=== PATIENT | female | born 1970 | race Caucasian/White ===

== ENCOUNTER 2023-06-02 06:34 | Day surgery (SDC) | payer BC, OTHER ==
[2023-05-26 16:28] VITALS: BMI 20.8
--- NOTE | 2023-06-01 11:01 | P.HPOR ---
History of Present Illness H&P Date: 06/01/23 Subjective: This is a 53 year old female that presents today for initial evaluation regarding a several year history of progressively worsening right hand paresthesias in the thumb, index, middle and ring fingers. The patient has tried bracing at night time with little relief. They deny any inciting event or neck pain. Physical Examination: RUE: AIN/PIN/Radial/Ulnar/Median motor intact. Radial/Ulnar/Median SILT. 2+/4 Radial/Ulnar pulses palpated. 5/5 APB, 5/5 FDI. Negative Finkelsteins, negative CMC grind, positive Durkan's compression. EMG/NCV: EMG/NCV performed on 04/01/23 demonstrates mild bilateral carpal tunnel syndrome Impression: 1.) Right carpal tunnel syndrome Plan: Diagnosis and treatment options were discussed with the patient. The patient has failed conservative treatment and would like to pursue a right endoscopic vs open carpal tunnel release. Risks and benefits of surgery including bleeding, infection, damage to surrounding tissue, need for further surgery, possible need to convert to open procedure, residual numbness were discussed and the patient wished to go forward with surgery. I anticipate 2 weeks off work, this can be extended if needed at first post op appointment. CC: Nikki Fontana NP -Burak Sun DO Orthopedic Hand/Upper Extremity Surgeon Past Medical History Past Medical History: GERD/Reflux, Hyperlipidemia Additional Past Medical History / Comment(s): Varicose veins. Raynaud's. Migraines. History of Any Multi-Drug Resistant Organisms: None Reported Past Surgical History: Orthopedic Surgery, Uterine Ablation Additional Past Surgical History / Comment(s): Septoplasty, uvulectomy, turbinates reduced, right knee meniscus repair X3, left wrist carpal tunnel surgery, left baby finger fused, thumb release, plantar fasciitis releases, fibroma removal left foot, LEEP. Past Anesthesia/Blood Transfusion Reactions: Previous Problems w/ Anesthesia, Motion Sickness Additional Past Anesthesia/Blood Transfusion Reaction / Comment(s): States "had 3 surgeries in 2019, after 3rd surgery I took longer to wake up". Smoking Status: Former smoker - Past Family History Father Family Medical History: Cancer Additional Family Medical History / Comment(s): Lung cancer. Medications and Allergies Home Medications Medication Instructions Recorded Confirmed Type Atorvastatin [Lipitor] 40 mg PO HS 05/26/23 05/26/23 History DULoxetine HCL [Cymbalta] 60 mg PO QAM 05/26/23 05/26/23 History Diclofenac Sodium 50 mg PO DAILY 05/26/23 05/26/23 History Fish Oil (Unknown Dose) 1 tab PO DAILY 05/26/23 05/26/23 History Fluticasone Nasal [place] [Flonase 1 spray EA NOSTRIL DAILY 05/26/23 05/26/23 History Nasal [place]] Hydroxychloroquine Sulfate 200 mg PO DAILY 05/26/23 05/26/23 History Lisdexamfetamine Dimesylate 30 mg PO QAM 05/26/23 05/26/23 History [Vyvanse] Multivit-Min/Folic Acid/Biotin 1 tab PO DAILY 05/26/23 05/26/23 History [Hair, Skin and Nails Softgel] Multivitamins, Thera [Multivitamin 1 tab PO DAILY 05/26/23 05/26/23 History (formulary)] NIFEdipine [NIFEdipine ER 60 mg PO DAILY PRN 05/26/23 05/26/23 History (Osmotic)] Omeprazole 20 mg PO QAM 05/26/23 05/26/23 History Rizatriptan Benzoate [Rizatriptan] 10 mg PO DIRECTED PRN 05/26/23 05/26/23 History Topiramate [Topamax] 50 mg PO QAM 05/26/23 05/26/23 History traZODone HCL 100 mg PO HS 05/26/23 05/26/23 History Allergies Allergy/AdvReac Type Severity Reaction Status Date / Time No Known Allergies Allergy Verified 05/26/23 16:02 Physical Examination Osteopathic Statement: *. No significant issues noted on an osteopathic structural exam other than those noted in the History and Physical/Consult.
[~2023-06-02 06:34] MED LIST: LIDOCAINE 1% (10MG/ML) FOR IV START INTRADERMA PRN; Pre Op ABX Message 1 EACH MISC MISCELLANE ONE
[2023-06-02] MEDS ORDERED: HYDROmorphone 0.5 MG/0.5 ML SYRINGE IVP PRN (07:00)
[2023-06-02] MEDS ORDERED: MIDAZOLAM 2 MG/2 ML VIAL IV PRN (07:00)
[2023-06-02] MEDS: LACTATED RINGERS 1,000 ML IV SCH (07:12)
[2023-06-02] MEDS: ONDANSETRON 4 MG/2 ML VIAL IVP ONE (07:19)
[2023-06-02] MEDS: DEXAMETHASONE SOD PHOSPHATE 4 MG/ML 1 ML VIAL IV ONE (07:19)
[2023-06-02] MEDS: FAMOTIDINE 20 MG/2 ML VIAL IVP ONE (07:23)
[2023-06-02 07:54] VITALS: TEMP 97.6
[2023-06-02] MEDS: LIDOCAINE 2% INJ 20 MG/ML SQ ONE ×2 (07:55→08:02)
[2023-06-02] MEDS: BUPIVACAINE (PF) 0.5% 30 ML VIAL SQ ONE ×2 (07:55→08:02)
[2023-06-02] MEDS ORDERED: PROPOFOL 10 MG/ML 20 ML VIAL IV ONE (07:57)
[2023-06-02] MEDS ORDERED: MIDAZOLAM 2 MG/2 ML VIAL ONE (07:57)
[2023-06-02] MEDS ORDERED: fentaNYL (PF) 50 MCG/ML 2 ML AMP ONE (07:57)
[2023-06-02] MEDS ORDERED: LIDOCAINE 1% INJ 10MG/ML (20 ML MDV) ONE (07:57)
--- NOTE | 2023-06-02 08:14 | P.OP ---
Date of Procedure: 06/02/23 Preoperative Diagnosis: Right carpal tunnel syndrome Postoperative Diagnosis: Right carpal tunnel syndrome Procedure(s) Performed: Right endoscopic carpal tunnel release Anesthesia: MAC Surgeon: Burak Sun Patient Sitter #1: Prem Francois Estimated Blood Loss (ml): 0 Pathology: none sent Condition: stable Disposition: PACU Description of Procedure: This is a 53 year old female who presents today for a right endoscopic carpal tunnel release after having failed conservative treatment in the past. Risks and benefits of surgery were discussed with the patient including bleeding, damage to surrounding tissue, infection, need to convert to open procedure, need for further surgery as well as risks of anesthesia including pulmonary embolism and even and the patient wished to proceed with surgical intervention. The patients was seen in the pre-operative area by myself. Consent and H&P were completed and updated. The correct extremity was marked in the pre-operative area by myself and all other questions were answered. Operative Narrative: The patient was brought to the operating room by the department of anesthesia. They remained on the portable stretcher and a rolling hand table was brought to the side of the operative extremity. Pre-operative time out was performed indicating the correct patient, procedure and laterality. All in the room agreed. The patient was then drifted off to sleep by the department of an esthesia. MAC anesthesia was utilized and a 50:50 mixture of 1% Lidocaine and 0.5% bupivacaine was injected into the subcutaneous tissues of the palmar skin, 8ccs total. A nonsterile tourniquet was then applied to the operative extremity and the right upper extremity was then prepped and draped in normal sterile fashion. The operative extremity was the exsanguinated with an esmarch bandage and the tourniquet was inflated to 250mmHg. 15 blade scalpel was utilized to make a transverse incision on the palmar skin just ulnar to the palmaris longus tendon at the level of the distal wrist creas e. Ragnell retractor was then placed radially and blunt dissection was performed to reveal the distal forearm fascia. This was lifted with fine [place] pick ups and Littler tenotomy scissors were then used to open the forearm fascia transversely and a double skin hook was then placed. Hamate finder was placed into the carpal tunnel and then sequential sized dilators were inserted followed by the synovial elevator to separate the flexor tenosynovium from the undersurface of the transverse carpal ligament and a washboard texture was felt. The MicroAire endoscopic carpal tunnel release system gun was the then inserted into the carpal tunnel hugging the deep portion of the transverse carpal ligament in line with the base of the ring finger. Transverse fibers of the ligament were directly visualized. Pressure was applied on the palm to reveal the distal extent of the transverse carpal ligament. The blade was then deployed and the distal half of the transverse carpal ligament was released. The scope was then brought distal again and remaining transverse fibers were incised with the blade. The proximal half of the transverse carpal ligament was then divided and again the scope was advanced distal and remaining transverse fibers were incised with the blade. The radial and ulnar leaflets were directly visualized and mobile consistent with complete release. Tenotomy scissors were then ut ilized to release the remaining distal forearm fascia under direct visualization taking care to preserve the palmar cutaneous branch of the median nerve. Skin closure was performed with interrupted 4-0 Monocryl suture followed by steri strips. Sterile dressing was applied consisting 4x4s, Webril, and an sophie bandage. Tourniquet was let down and the hand immediately was well perfused. The patient was then woken by the department of anesthesia and transferred to PACU in stable condition. Prem REESE was present for the case in its entirety and assisted in major portions of the case and protection of vital neurovascular structures. Burak Sun D.O. Orthopedic Hand/Upper Extremity Surgeon
[2023-06-02 09:16] VITALS: BP 128/83; PULSE 62; RESP 18
== END 2023-06-02 09:06 | disposition home or self-care (01) ==
LOC: OR 06:34
PROVIDERS: ATTEND Orthopaedic Surgery Hand Surgery
DX: G56.01 Carpal tunnel syndrome, right upper limb (principal); E78.5 Hyperlipidemia, unspecified; K21.9 Gastro-esophageal reflux disease without esophagitis; G40.909 Epilepsy, unspecified, not intractable, without status epilepticus; F32.A Depression, unspecified; I73.00 Raynaud's syndrome without gangrene; G43.909 Migraine, unspecified, not intractable, without status migrainosus; I83.90 Asymptomatic varicose veins of unspecified lower extremity; Z87.891 Personal history of nicotine dependence; Z98.890 Other specified postprocedural states; Z79.1 Long term (current) use of non-steroidal anti-inflammatories (NSAID); Z79.899 Other long term (current) drug therapy
CPT/HCPCS: 29848; J2001 ×2; J2250; J1100; J2405; J3010; J3490; J2704; J0665

== ENCOUNTER 2023-10-01 12:51 | Emergency (ER) | payer OTHER, BC ==
[2023-10-01 13:30] VITALS: RESP 16
--- NOTE | 2023-10-01 15:30 | ED ---
Skin/Abscess/FB HPI - General Chief complaint: Skin/Abscess/Foreign Body Stated complaint: Needle Stick Time Seen by Provider: 10/01/23 14:46 Source: patient, RN notes reviewed Mode of arrival: ambulatory Limitations: no limitations - History of Present Illness Initial comments: This is a 53-year-old female who presents to the emergency department for a needlestick injury. Patient works for [employer] and was using the autoclave machine. States that a dirty pair of scissors poked her in the left index finger. This did draw some blood. She irrigated this thoroughly, however her boss told her that she needed to come to the emergency department for blood work. Tetanus vaccine is up-to-date. - Related Data Home Medications Medication Instructions Recorded Confirmed Atorvastatin [Lipitor] 40 mg PO HS 05/26/23 06/02/23 DULoxetine HCL [Cymbalta] 60 mg PO QAM 05/26/23 06/02/23 Diclofenac Sodium 50 mg PO DAILY 05/26/23 06/02/23 Fish Oil (Unknown Dose) 1 tab PO DAILY 05/26/23 06/02/23 Fluticasone Nasal [place] [Flonase 1 spray EA NOSTRIL DAILY 05/26/23 06/02/23 Nasal [place]] Hydroxychloroquine Sulfate 200 mg PO DAILY 05/26/23 06/02/23 Lisdexamfetamine Dimesylate 30 mg PO QAM 05/26/23 06/02/23 [Vyvanse] Multivit-Min/Folic Acid/Biotin 1 tab PO DAILY 05/26/23 06/02/23 [Hair, Skin and Nails Softgel] Multivitamins, Thera [Multivitamin 1 tab PO DAILY 05/26/23 06/02/23 (formulary)] NIFEdipine [NIFEdipine ER 60 mg PO DAILY PRN 05/26/23 06/02/23 (Osmotic)] Omeprazole 20 mg PO QAM 05/26/23 06/02/23 Rizatriptan Benzoate [Rizatriptan] 10 mg PO DIRECTED PRN 05/26/23 06/02/23 Topiramate [Topamax] 50 mg PO QAM 05/26/23 06/02/23 traZODone HCL 100 mg PO HS 05/26/23 06/02/23 Allergies Allergy/AdvReac Type Severity Reaction Status Date / Time No Known Allergies Allergy Verified 06/02/23 07:14 Review of Systems ROS Statement: Those systems with pertinent positive or pertinent negative responses have been documented in the HPI. ROS Other: All systems not noted in ROS Statement are negative. Past Medical History Past Medical History: GERD/Reflux, Hyperlipidemia Additional Past Medical History / Comment(s): Varicose veins. Raynaud's. Migraines. History of Any Multi-Drug Resistant Organisms: None Reported Past Surgical History: Orthopedic Surgery, Uterine Ablation Additional Past Surgical History / Comment(s): Septoplasty, uvulectomy, turbinates reduced, right knee meniscus repair X3, left wrist carpal tunnel surgery, left baby finger fused, thumb release, plantar fasciitis releases, fibroma removal left foot, LEEP. Past Anesthesia/Blood Transfusion Reactions: Previous Problems w/ Anesthesia, Motion Sickness Additional Past Anesthesia/Blood Transfusion Reaction / Comment(s): States "had 3 surgeries in 2019, after 3rd surgery I took longer to wake up". Past Psychological History: Depression Smoking Status: Former smoker - Past Family History Father Family Medical History: Cancer Additional Family Medical History / Comment(s): Lung cancer. General Exam Limitations: no limitations General appearance: alert, in no apparent distress Head exam: Present: atraumatic, normocephalic, normal inspection Respiratory exam: Present: normal lung sounds bilaterally. Absent: respiratory distress, wheezes, rales, rhonchi, stridor Cardiovascular Exam: Present: regular rate, normal rhythm, normal heart sounds. Absent: systolic murmur, diastolic murmur, rubs, gallop, clicks Neurological exam: Present: alert, oriented X3, CN II-XII intact Psychiatric exam: Present: normal affect, normal mood Skin exam: Present: warm, dry, intact, normal color. Absent: rash Course Vital Signs 10/01/23 10/01/23 13:27 16:15 Temperature 98.1 F 98 F Pulse Rate 74 90 Respiratory 16 16 Rate Blood Pressure 126/80 120/82 O2 Sat by Pulse 98 98 Oximetry Medical Decision Making - Medical Decision Making This is a 53 year old female who presents to the emergency department for a needle stick injury. Was pt. sent in by a medical professional or institution? @ -No Did you speak to anyone other than the patient for history? @ -No Did you review nursing and triage notes? @ -Yes, and I agree, it is accurate with regards to the patient's symptoms. Were old charts reviewed? @ -No Differential Diagnosis? @ -Differential Needle Stick Injury: Laceration, abrasion, cellulitis, burn, insect bite, this is not meant to be an all-inclusive list. EKG interpreted by me (3pts min.)? @ -Not obtained X-rays interpreted by me (1pt min.)? @ -Not obtained CT interpreted by me (1pt min.)? @ -Not obtained U/S interpreted by me (1pt. min.)? @ -Not obtained What testing was considered but not performed? (CT, X-rays, U/S, labs)? Why? @ -None What meds were considered but not given? Why? @ -None Did you discuss the management of the patient with other professionals? @ -No Did you reconcile home meds? @ -No Was smoking cessation discussed for >3mins.? @ -No Was critical care preformed (if so, how long)? @ -No Were there social determinants of health that impacted care today? How? (Homelessness, low income, unemployed, alcoholism, drug addiction, transportation, low edu. Level, literacy, decrease access to med. care, longterm, rehab)? @ -No Was there de-escalation of care discussed even if they declined? (Discuss DNR or withdrawal of care, Hospice)? @ -No What co-morbidities impacted this encounter? (DM, HTN, Smoking, COPD, CAD, Cancer, CVA, Hep., AIDS, mental health diagnosis, sleep apnea, morbid obesity)? @ -None Was patient admitted / discharged? @ -Discharged. I did offer postexposure prophylaxis treatment, however patient declined. Tetanus vaccine is up-to-date. Required blood work and paperwork filled out per needlestick requirements. Patient discharged home in stable condition. Case discussed with ED attending Dr. Sosa. Return precautions reviewed in depth, the patient is instructed to return to the emergency department with any new, worsening, or concerning symptoms. Patient verbalized understanding. Undiagnosed new problem with uncertain prognosis? @ -None Drug Therapy requiring intensive monitoring for toxicity (Heparin, Nitro, Insulin, Cardizem)? @ -None Were any procedures done? @ -None Diagnosis/symptom? @ -Needle Stick Injury Acute, or Chronic, or Acute on Chronic? @ -Acute Uncomplicated (without systemic symptoms) or Complicated (systemic symptoms)? @ -Uncomplicated Side effects of treatment? @ -None Exacerbation, Progression, or Severe Exacerbation] @ -Not applicable Poses a threat to life or bodily function? @ -No - Lab Data Lab Results 10/01/23 10/01/23 Range/Units 15:52 15:52 Hep Bs Antigen Nonreactive (Nonreactive) Hep Bs Antibody A (Negative) Hep Bs Antibody, Quant 326.0 mIU/mL Hep B Core Total Ab Nonreactive (Nonreactive) Hep C IgG Ab Nonreactive (Nonreactive) HIV-1 Antibody Non-Reactive (Non-Reactive) HIV Ag/Ab Interpret HIV p24 Antibody Non-Reactive (Non-Reactive) HIV-2 Antibody Non-Reactive (Non-Reactive) HIV P24 Antigen Non-Reactive (Non-Reactive) Disposition Clinical Impression: Needle stick injury of finger Disposition: HOME SELF-CARE Instructions (If sedation given, give patient instructions): Needle Stick Injuries (ED) Additional Instructions: Return to the emergency department with any new, worsening, or concerning symptoms. Follow up with your primary care provider in 1-2 days. Is patient prescribed a controlled substance at d/c from ED?: No Referrals: Edison Talbert MD [Primary Care Provider] - 1-2 days
[2023-10-01 16:16] VITALS: BP 120/82; PULSE 90; TEMP 98
[2023-10-02 02:41] LABS: Hepatitis B Surface Antigen Nonreactive (Nonreactive); Hepatitis C IgG Antibody Nonreactive (Nonreactive)
[2023-10-02 03:45] LABS: HIV 2 AB Non-Reactive (Non-Reactive); HIV AB P24 Non-Reactive (Non-Reactive); HIV P24 AG Non-Reactive (Non-Reactive)
== END 2023-10-01 16:30 | disposition home or self-care (01) ==
LOC: EC 12:51
DX: S69.92XA Unspecified injury of left wrist, hand and finger(s), initial encounter (principal); Z87.891 Personal history of nicotine dependence; W46.0XXA Contact with hypodermic needle, initial encounter; Y99.0 Civilian activity done for income or pay; Z77.21 Contact with and (suspected) exposure to potentially hazardous body fluids
CPT/HCPCS: 36415; 86704; 86706; 86803; 87340; 87390; 99283

== ENCOUNTER 2024-01-11 13:22 | Emergency (ER) | payer BC, OTHER ==
[2024-01-11 13:27] VITALS: RESP 16
--- NOTE | 2024-01-11 15:12 | ED ---
General Adult HPI - General Chief complaint: Needlestick/Exposure Stated complaint: [facility]-Needle stick Time Seen by Provider: 01/11/24 15:11 Source: patient Mode of arrival: ambulatory Limitations: no limitations - History of Present Illness Initial comments: 53-year-old female presenting for needlestick exposure at work today. Patient was disposing of a needle when she excellently pricked her left third digit. Patient is undergoing testing for hepatitis and HIV. - Related Data Home Medications Medication Instructions Recorded Confirmed Atorvastatin [Lipitor] 40 mg PO HS 05/26/23 06/02/23 DULoxetine HCL [Cymbalta] 60 mg PO QAM 05/26/23 06/02/23 Diclofenac Sodium 50 mg PO DAILY 05/26/23 06/02/23 Fish Oil (Unknown Dose) 1 tab PO DAILY 05/26/23 06/02/23 Fluticasone Nasal [place] [Flonase 1 spray EA NOSTRIL DAILY 05/26/23 06/02/23 Nasal [place]] Hydroxychloroquine Sulfate 200 mg PO DAILY 05/26/23 06/02/23 Lisdexamfetamine Dimesylate 30 mg PO QAM 05/26/23 06/02/23 [Vyvanse] Multivit-Min/Folic Acid/Biotin 1 tab PO DAILY 05/26/23 06/02/23 [Hair, Skin and Nails Softgel] Multivitamins, Thera [Multivitamin 1 tab PO DAILY 05/26/23 06/02/23 (formulary)] NIFEdipine [NIFEdipine ER 60 mg PO DAILY PRN 05/26/23 06/02/23 (Osmotic)] Omeprazole 20 mg PO QAM 05/26/23 06/02/23 Rizatriptan Benzoate [Rizatriptan] 10 mg PO DIRECTED PRN 05/26/23 06/02/23 Topiramate [Topamax] 50 mg PO QAM 05/26/23 06/02/23 traZODone HCL 100 mg PO HS 05/26/23 06/02/23 Allergies Allergy/AdvReac Type Severity Reaction Status Date / Time No Known Allergies Allergy Verified 06/02/23 07:14 Review of Systems ROS Statement: Those systems with pertinent positive or pertinent negative responses have been documented in the HPI. ROS Other: All systems not noted in ROS Statement are negative. Past Medical History Past Medical History: GERD/Reflux, Hyperlipidemia Additional Past Medical History / Comment(s): Varicose veins. Raynaud's. Migraines. History of Any Multi-Drug Resistant Organisms: None Reported Past Surgical History: Orthopedic Surgery, Uterine Ablation Additional Past Surgical History / Comment(s): Septoplasty, uvulectomy, turbinates reduced, right knee meniscus repair X3, left wrist carpal tunnel surgery, left baby finger fused, thumb release, plantar fasciitis releases, fibroma removal left foot, LEEP. Past Anesthesia/Blood Transfusion Reactions: Previous Problems w/ Anesthesia, Motion Sickness Additional Past Anesthesia/Blood Transfusion Reaction / Comment(s): States "had 3 surgeries in 2019, after 3rd surgery I took longer to wake up". Past Psychological History: Depression Smoking Status: Former smoker - Past Family History Father Family Medical History: Cancer Additional Family Medical History / Comment(s): Lung cancer. General Exam Limitations: no limitations General appearance: alert, in no apparent distress Head exam: Present: atraumatic, normocephalic, normal inspection Eye exam: Present: normal appearance, PERRL, EOMI. Absent: scleral icterus, conjunctival injection, periorbital swelling ENT exam: Present: normal exam, mucous membranes moist Left Forearm Wrist exam: Present: normal inspection, full ROM. Absent: tenderness, swelling, abrasion Hand Wrist exam: Present: full ROM. Absent: normal inspection (Pinpoint abrasion on distal aspect of left third digit with no active bleeding), tenderness, swelling, abrasion Vascular: Present: normal capillary refill, radial pulse. Absent: vascular compromise Neurological exam: Present: alert, oriented X3 Psychiatric exam: Present: normal affect, normal mood Skin exam: Present: warm, dry, intact, normal color. Absent: rash Course Vital Signs 01/11/24 01/11/24 13:24 15:19 Temperature 97.7 F 97.8 F Pulse Rate 80 81 Respiratory 16 16 Rate Blood Pressure 111/73 115/82 O2 Sat by Pulse 99 99 Oximetry Medical Decision Making - Medical Decision Making Was pt. sent in by a medical professional or institution (, PA, SERVER SUPPORT TECHNICIAN, urgent care, hospital, or residential...) When possible be specific @ -No Did you speak to anyone other than the patient for history (EMS, parent, family, police, friend...)? What history was obtained from this source @ -No Did you review nursing and triage notes (agree or disagree)? Why? @ -I reviewed and agree with nursing and triage notes Were old charts reviewed (outside hosp., previous admission, EMS record, old EKG, old radiological studies, urgent care reports/EKG's, residential records)? Report findings @ -No old charts were reviewed Differential Diagnosis (chest pain, altered mental status, abdominal pain women, abdominal pain men, vaginal bleeding, weakness, fever, dyspnea, syncope, headache, dizziness, GI bleed, back pain, seizure, CVA, palpatations, mental health, musculoskeletal)? @ -Not applicable EKG interpreted by me (3pts min.). @ -As above X-rays interpreted by me (1pt min.). @ -None done CT interpreted by me (1pt min.). @ -None done U/S interpreted by me (1pt. min.). @ -None done What testing was considered but not performed or refused? (CT, X-rays, U/S, labs)? Why? @ -None What meds were considered but not given or refused? Why? @ -None Did you discuss the management of the patient with other professionals (professionals i.e. , PA, SERVER SUPPORT TECHNICIAN, lab, RT, psych nurse, social sciences lecturer, relief map modeler, teacher, founder and chief executive officer, watch case polisher)? Give summary @ -No Was smoking cessation discussed for >3mins.? @ -No Was critical care preformed (if so, how long)? @ -No Were there social determinants of health that impacted care today? How? (Homelessness, low income, unemployed, alcoholism, drug addiction, transportation, low edu. Level, literacy, decrease access to med. care, correction, rehab)? @ -No Was there de-escalation of care discussed even if they declined (Discuss DNR or withdrawal of care, Hospice)? DNR status @ -No What co-morbidities impacted this encounter? (DM, HTN, Smoking, COPD, CAD, Cancer, CVA, ARF, Chemo, Hep., AIDS, mental health diagnosis, sleep apnea, morbid obesity)? @ -None Was patient admitted / discharged? Hospital course, mention meds given and route, prescriptions, significant lab abnormalities, going to OR and other pertinent info. @ -Discharge. This is a 53-year-old female presenting for [facility] needlestick exposure at work today. Patient accidentally poked herself in the left third digit after drawing labs on the patient. Patient is currently being tested for HIV and hepatitis. Routine lab draw performed today. Patient declines HIV PrEP. Discharged in stable condition. Case was discussed with my ED attending Dr. Sosa. Undiagnosed new problem with uncertain prognosis? @ -No Drug Therapy requiring intensive monitoring for toxicity (Heparin, Nitro, Insulin, Cardizem)? @ -No Were any procedures done? @ -No Diagnosis/symptom? @ -Needlestick exposure Acute, or Chronic, or Acute on Chronic? @ -Acute Uncomplicated (without systemic symptoms) or Complicated (systemic symptoms)? @ -Uncomplicated Side effects of treatment? @ -No Exacerbation, Progression, or Severe Exacerbation? @ -No Poses a threat to life or bodily function? How? (Chest pain, [place], [place], pneumonia, PE, COPD, DKA, ARF, appy, cholecystitis, CVA, Diverticulitis, Homicidal, Suicidal, threat to staff... and all critical care pts) @ -No Disposition Clinical Impression: Needle exposure Disposition: HOME SELF-CARE Condition: Stable Additional Instructions: Please return to the Emergency Department if symptoms worsen or any other concerns. Is patient prescribed a controlled substance at d/c from ED?: No Referrals: Edison Talbert MD [Primary Care Provider] - 1-2 days Time of Disposition: 15:12
[2024-01-11 15:20] VITALS: BP 115/82; PULSE 81; TEMP 97.8
[2024-01-11 20:38] LABS: HIV 2 AB Non-Reactive (Non-Reactive); HIV AB P24 Non-Reactive (Non-Reactive); HIV P24 AG Non-Reactive (Non-Reactive)
[2024-01-11 21:11] LABS: Hepatitis B Surface Antigen Nonreactive (Nonreactive); Hepatitis C IgG Antibody Nonreactive (Nonreactive)
== END 2024-01-11 15:21 | disposition home or self-care (01) ==
LOC: EC 13:22
DX: Z77.21 Contact with and (suspected) exposure to potentially hazardous body fluids (principal); Z87.891 Personal history of nicotine dependence
CPT/HCPCS: 36415; 86704; 86706; 86803; 87340; 87390; 99283

== ENCOUNTER → 2024-02-24 | Outpatient (CLI) | payer BC ==
[2024-02-24 17:32] VITALS: BP 125/81; PULSE 74; RESP 12; TEMP 98.1
--- NOTE | 2024-02-24 18:08 | P.SLEEP ---
History of Present Illness DATE: 02/24/2024 CONSULTATION/NEW PATIENT EVALUATION HISTORY OF PRESENT ILLNESS/SLEEP-WAKE EVALUATION: 53-year-old lady had been evaluated in the sleep center for possible obstructive sleep apnea hypopnea syndrome. SLEEP SCHEDULE: Usually sleep schedule from 9 PM to 6 AM on weekdays and from 910 PM to 6307 AM on weekend. FALLING ASLEEP: No problems with falling asleep. DURING SLEEP: Patient snores, has episodes of witnessed stop breathing during the sleep by her . Patient grind her teeth. Patient wakes up from sleep once with nocturia no history of hypnogogical hallucinations, sleep paralysis, or cataplexy. DURING THE DAY/WAKE STATE: Patient has problems with memory, depression, sexual dysfunction. Branch sleepiness scale is 0. Patient does not take naps. PAST MEDICAL HISTORY: Depression, arthritis. PAST SURGICAL HISTORY: Septoplasty, turbinate reduction surgery, uvulectomy. MEDICATIONS: Please see below. SOCIAL HISTORY: Please see below. FAMILY HISTORY: Please see below. REVIEW OF SYSTEMS: Snoring, witnessed episodes of stop breathing during the sleep. No fevers. No double vision. No recent chest pain. No shortness of breath. No abdominal pain. No bleeding episodes. No blood in urine. No seizure episodes. PHYSICAL EXAMINATION: GENERAL: A pleasant patient without any distress. VITAL SIGNS: Please see below, weight 112.8 pounds, BMI 21.8. HEENT: PERRLA, EOMI. Evaluation of oropharynx showed tongue protrudes midline, low position of soft palate Mallampati 3, white pillars. NECK: Supple. No JVD. Thyroid is not palpable. 13 inches in circumference. LUNGS: Clear to percussion and to auscultation. Good air exchange. No wheezing or rhonchi. HEART: S1, S2 regular. No murmurs, gallops or rubs. ABDOMEN: Soft and nontender. Bowel sounds are present. No organomegaly appreciated. EXTREMITIES: No clubbing or cyanosis. SWEATBAND DRUMMER: Awake, alert, and oriented x3. Cranial nerves 2 to 7 intact. There is no fasciculation or atrophy noted. No focal deficits observed. ASSESSMENT: 1. Snoring, witnessed episodes of stop breathing during the sleep, low position of soft palate Mallampati 3, white pillars. Obstructive sleep apnea hypopnea syndrome. 2. Depression. 3. Hyperlipidemia. 4. History of palpitation. 5 status post nasal septoplasty and turbinate reduction. 6 . Status post uvulectomy. PLAN: 1. Home sleep apnea test Polysomnography for evaluation of patient's breathing during sleep. 2. CPAP/BiPAP titration if sleep study confirms obstructive sleep apnea-hypop rylie syndrome. 3. Preferable position during sleep on the side. 4. No driving if patient feels any sleepiness. Patient is aware of civil and criminal liability for unsafe driving. 5. Sleep hygiene with regular sleep time for at least 7.5-8 hours. 6. Watching weight. Thank you very much for referring this patient for consultation. Sincerely, Josh Paul MD, PhD, FAASM. Diplomat of [employer], Sleep Medicine Board by [employer] [facility] [place] cc: Anuj James DO Past Medical History Past Medical History: GERD/Reflux Additional Past Medical History / Comment(s): Varicose veins. Raynaud's. Migraines. History of Any Multi-Drug Resistant Organisms: None Reported Past Surgical History: Orthopedic Surgery, Uterine Ablation Additional Past Surgical History / Comment(s): Septoplasty, uvulectomy, turbinates reduced, right knee meniscus repair X3, left wrist carpal tunnel surgery, left baby finger fused, thumb release, plantar fasciitis releases, fibroma removal left foot, LEEP. Past Anesthesia/Blood Transfusion Reactions: Previous Problems w/ Anesthesia, Motion Sickness Additional Past Anesthesia/Blood Transfusion Reaction / Comment(s): States "had 3 surgeries in 2019, after 3rd surgery I took longer to wake up". Past Psychological History: Depression Smoking Status: Former smoker Past Alcohol Use History: Occasional Additional Past Alcohol Use History / Comment(s): Smoked for 2 months at age 21. Past Drug Use History: None Reported - Past Family History Father Family Medical History: Cancer Additional Family Medical History / Comment(s): Lung cancer. Medications and Allergies Home Medications Medication Instructions Recorded Confirmed Type Atorvastatin [Lipitor] 40 mg PO HS 05/26/23 02/24/24 History Diclofenac Sodium 50 mg PO DAILY 05/26/23 02/24/24 History Fish Oil (Unknown Dose) 1 tab PO DAILY 05/26/23 02/24/24 History Fluticasone Nasal [place] [Flonase 1 spray EA NOSTRIL DAILY 05/26/23 02/24/24 History Nasal [place]] Multivit-Min/Folic Acid/Biotin 1 tab PO DAILY 05/26/23 02/24/24 History [Hair, Skin and Nails Softgel] Multivitamins, Thera [Multivitamin 1 tab PO DAILY 05/26/23 02/24/24 History (formulary)] Omeprazole 20 mg PO QAM 05/26/23 02/24/24 History Rizatriptan Benzoate [Rizatriptan] 10 mg PO DIRECTED PRN 05/26/23 02/24/24 History Topiramate [Topamax] 25 mg PO QAM 05/26/23 02/24/24 History traZODone HCL 100 mg PO HS 05/26/23 02/24/24 History Atomoxetine HCl [Strattera] 40 mg PO 02/24/24 History Escitalopram [Lexapro] 20 mg PO DAILY 02/24/24 02/24/24 History Gabapentin [Neurontin] 300 mg PO TID 02/24/24 02/24/24 History dilTIAZem HCL [Cardizem CD] 120 mg PO DAILY 02/24/24 02/24/24 History Allergies Allergy/AdvReac Type Severity Reaction Status Date / Time No Known Allergies Allergy Verified 06/02/23 07:14 Physical Exam Vitals: Vital Signs Temp Pulse Resp BP Pulse Ox 02/24/24 17:28 98.1 F 74 12 125/81 100 Intake and Output 02/24/24 02/24/24 02/24/24 06:59 14:59 22:59 Other: Weight 50.802 kg Sleep Note - Sleep Data ESS Total: 0 - Sleep Note Sleep Note: Temperature: 98.1 F Pulse Rate: 74 Respiratory Rate: 12 Blood Pressure: 125/81 SpO2: 100 Height: 5 ft 0.3 in Weight: 50.802 kg BMI: Neck Circumference: 13
== END ==
LOC: 3 N SLEEP 16:38
PROVIDERS: ATTEND Internal Medicine
DX: G47.33 Obstructive sleep apnea (adult) (pediatric) (principal); F32.A Depression, unspecified; E78.5 Hyperlipidemia, unspecified; Z98.890 Other specified postprocedural states
CPT/HCPCS: 99211

== ENCOUNTER → 2024-08-22 | Outpatient (CLI) | payer OTHER ==
--- NOTE | 2024-08-22 10:40 | XR ---
EXAMINATION TYPE: XR wrist complete 4 views LT, XR hand complete 3 views LT DATE OF EXAM: 08/22/2024 10:35 AM COMPARISON: None CLINICAL INDICATION: Female, 54 years old with history of S63.617A S63.502A; PHH, pain FINDINGS: Wrist: The radiocarpal and distal radioulnar joint as well as the midcarpal compartment appear intact. No ac carlotta fracture, subluxation, dislocation. Hand: There is moderate to severe degenerative change first CMC joint with joint space narrowing and margin al spurring. There appears to be previous surgical fusion across the fifth DIP joint. Degenerative torres bchondral geode at the first MCP joint. Additional [id number] degenerative change suggested wit hin the third and fourth PIP joints IMPRESSION: Wrist and hand without acute osseous abnormality seen. Moderate OA at the basal joint of the thumb. A dditional scattered mild osteoarthritic change. Previous surgical arthrodesis fifth DIP joint.. [facility], , 08/22/2024 10:38 AM
== END | disposition home or self-care (01) ==
LOC: RADXRMAIN 10:15
PROVIDERS: ATTEND Emergency Medicine
DX: S63.617A Unspecified sprain of left little finger, initial encounter (principal); S63.502A Unspecified sprain of left wrist, initial encounter; M19.042 Primary osteoarthritis, left hand; M19.032 Primary osteoarthritis, left wrist

== ENCOUNTER → 2024-08-30 | Outpatient (CLI) | payer OTHER ==
--- NOTE | 2024-08-30 09:26 | XR ---
EXAMINATION TYPE: XR wrist complete LT, XR hand complete LT DATE OF EXAM: 08/30/2024 9:18 AM INDICATION: Patient age:Female; 54 years old; Reason for study: S63.617D UNSPECIFIED SPRAIN OF LEFT LITTLE FINGER,; PHH. pain COMPARISON: Left hand and wrist radiographs 08/22/2024 TECHNIQUE: 4 views of the left wrist including frontal, navicular, lateral, and oblique. The left bajwa nd was examined in frontal, lateral, and oblique projections. FINDINGS: Wrist: The radiocarpal and distal radioulnar joints as well as the midcarpal compartment appear intact. No a cute fracture, subluxation, dislocation. Hand: Moderate degenerative change first CMC joint with joint space narrowing and marginal spurring again. Previous surgical fusion across the fifth DIP joint. Degenerative subchondral geode at the first MCP joint again. Mild degenerative change suggested within the third and fourth PIP joints again. No acut e fracture or dislocation. IMPRESSION: 1. No acute fracture or dislocation of the wrist or hand. 2. Moderate OA at the basal joint of the thumb redemonstrated. Additional scattered mild osteoarthri tic change. Previous surgical arthrodesis fifth DIP joint. [facility], , 08/30/2024 9:23 AM
== END | disposition home or self-care (01) ==
LOC: RADXRMAIN 09:00
PROVIDERS: ATTEND Emergency Medicine
DX: S63.617D Unspecified sprain of left little finger, subsequent encounter (principal); S63.502D Unspecified sprain of left wrist, subsequent encounter; M19.042 Primary osteoarthritis, left hand; M19.032 Primary osteoarthritis, left wrist

== ENCOUNTER → 2024-09-05 | Outpatient (CLI) | payer OTHER ==
--- NOTE | 2024-09-11 19:39 | MR ---
EXAMINATION TYPE: MR wrist LT wo con DATE OF EXAM: 09/05/2024 8:14 AM COMPARISON: Left hand and wrist radiographs August 30, 2024. CLINICAL INDICATION: Female, 54 years old with history of S63.502D UNSPECIFIED SPRAIN OF LEFT WRIST, SUBSEQU; PHH, Left wrist pain, injury 6-25. TECHNIQUE: Multiplanar multisequence imaging of the wrist. No Gadolinium given. FINDINGS: Joint spaces/articular cartilage and alignment: High-grade cartilage loss with marked cystic change a nd edema-like marrow signal at the first CMC joint with small effusion. Subchondral cystic change of the dorsal aspect of the lunate. Subchondral edema-like marrow signal of the pisiform with additional cystic change. Small piso-triquetral joint effusion. Flexor retinaculum: Intact Median nerve: Intact Flexor tendons: Intact Extensor tendons: Intact Abductors/adductor tendons: Intact Intrinsic carpal ligaments: Intact Extrinsic carpal ligaments: Intact Triangular fibrocartilage complex: Intermediate fluid sensitive signal of the dorsal band. Additional linear intermediate signal of the central disc concerning for small bowel perforation. Trace volume of fluid in the DRUJ. Neurovascular structures: Normal Marrow: Degenerative change as above. Focus of susceptibility in the first metacarpal head, may relat e to prior intervention. No acute fracture. No marrow replacing process. Nonspecific lobular linear f luid signal in the medullary portion of the first metacarpal, nonspecific though benign in appearance and may relate to prominent vascularity versus atypical enchondroma. No suspicious periostitis, endo steal scalloping, or bony expansion. Soft tissues: Normal IMPRESSION: 1. 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 2. Severe osteoarthrosis of the first CMC and piso-triquetral joints. [facility], , 09/11/2024 7:36 PM
== END | disposition home or self-care (01) ==
LOC: RADMRIMAIN 07:09
PROVIDERS: ATTEND Emergency Medicine
DX: M18.12 Unilateral primary osteoarthritis of first carpometacarpal joint, left hand (principal); S63.502D Unspecified sprain of left wrist, subsequent encounter; S63.617D Unspecified sprain of left little finger, subsequent encounter